=== PATIENT | male | born 1970 | race Caucasian/White ===

== ENCOUNTER 2016-05-31 08:55 | Emergency (ER) | payer BC ==
[2016-05-31] MEDS ORDERED: Sodium Chloride 0.9% 10 ML Syringe FLUSH PRN (09:09)
[2016-05-31] MEDS ORDERED: Aspirin 81 MG Tab.Chew PO ONE (09:09)
[2016-05-31] MEDS: Nitroglycerin 0.4 MG Tab.SL SL PRN ×3 (09:17→09:31)
--- NOTE | 2016-05-31 09:17 | EDM.PDOC ---
ED HISTORY OF PRESENT ILLNESS - General Chief Complaint: Chest Pain Stated Complaint: CHEST PAIN Time Seen by Provider: 05/31/16 09:02 Source of Information: Reports: Patient History Limitations: Reports: No limitations - History of Present Illness INITIAL COMMENTS - FREE TEXT/NARRATIVE: The patient presents with chest pressure. He describes it as an elephant sitting on his chest. This started about 4am. He feels short of breath with it. He has been having these episodes of chest pain on and off for a few months. This last one was for a couple days and today it was worse. He is scheduled to see a manpower development manager tomorrow. Dr Arce is his doctor and she told him if he has another episode to come to the ER. He did not take aspirin this morning. He feels feverish and he has chills. He has a slight cough. He has no nausea or vomiting but he did have a hard lump that hurt to his left upper abdomen. 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 They did not require stenting. He saw his doctor last week. She told him he has a "black spot" on his heart. The pain radiates to his back. He also has generalized weakness. Timing/Duration: Reports: Week(s): Severity: severe Location, General: Reports: chest Quality: Reports: Pressure Improves with: Reports: None Worsens with: Reports: None Associated Symptoms (General): Reports: chest pain, cough, fever/chills, shortness of breath. Denies: loss of appetite, nausea/vomiting - Related Data Allergies/ADRs: Allergies Allergy/AdvReac Type Severity Reaction Status Date / Time codeine Allergy Anxiety Verified 05/31/16 09:04 ketorolac [From Toradol] Allergy Headache Verified 05/31/16 09:04 Home Meds: Home Meds Carvedilol [Coreg] 12.5 mg PO DAILY 10/14/15 [History] Escitalopram [Lexapro] 20 mg PO DAILY 10/14/15 [History] Levothyroxine [Synthroid] 200 mcg PO DAILY 10/14/15 [History] Lisinopril 40 mg PO DAILY 10/14/15 [History] Past Medical History Cardiovascular History: Reports: Hypertension, [place] Musculoskeletal History: Reports: Fibromyalgia Neurological History: Reports: Other (see below) Other Neuro History: syncopal episode Psychiatric History: Reports: Depression Endocrine/Metabolic History: Reports: Hypothyroidism - Past Surgical History HEENT Surgical History: Reports: Tonsillectomy GI Surgical History: Reports: Cholecystectomy, Other (see below) Other GI Surgeries/Procedures: gastric bypass Endocrine Surgical History: Reports: Thyroidectomy Social & Family History - Family History Cardiac: Reports: [place] Endocrine/Metabolic: Reports: Diabetes, type II Oncologic: Reports: Ovarian - Tobacco Use Smoking Status *Q: Current Every Day Smoker Years of Tobacco use: 18 Packs/Tins Daily: 0.5 - Recreational Drug Use Recreational Drug Use: No ED ROS GENERAL - Review of Systems Review Of Systems: See Below Constitutional: Reports: fever, chills, malaise, weakness HEENT: Reports: No symptoms Respiratory: Reports: shortness of breath, cough Cardiovascular: Reports: Chest pain Endocrine: Reports: fatigue GI/Abdominal: Reports: No symptoms : Reports: no symptoms Musculoskeletal: Reports: no symptoms Skin: Reports: no symptoms ED EXAM, GENERAL - Physical Exam Exam: See Below Exam Limited By: No limitations General Appearance: alert, no apparent distress Ears: normal external exam Nose: normal inspection Head: atraumatic, normocephalic Neck: normal inspection Respiratory/Chest: no respiratory distress, lungs clear, normal breath sounds Cardiovascular: regular rate, rhythm, no edema, no murmur GI/Abdominal: soft, non tender, no organomegaly Back Exam: normal inspection Extremities: normal inspection EKG INTERPRETATION EKG Date: 05/31/16 Time: 08:59 Rhythm: NSR Rate (beats/min): 61 [place]: normal P-wave: present QRS: normal ST-T: normal QT: normal Course - Vital Signs Last Recorded V/S: Last Vital Signs Temp 97.6 F 05/31/16 08:59 Pulse 65 05/31/16 08:59 Resp 18 05/31/16 08:59 BP 153/110 H 05/31/16 09:31 Pulse Ox 100 05/31/16 09:00 - Orders/Labs/Meds Orders: Active Orders 24 hr Category Date Time Status Cardiac Monitoring [RC] . DIRECTED Care 05/31/16 09:09 Active EKG Documentation Completion [RC] STAT Care 05/31/16 09:10 Active Oxygen Therapy [RC] PRN Care 05/31/16 09:09 Active Peripheral IV Care [RC] . DIRECTED Care 05/31/16 09:10 Active Nitroglycerin [Nitrostat] Med 05/31/16 09:09 Active 0.4 mg SL Q5M PRN Sodium Chloride 0.9% [Normal Saline] 100 ml Med 05/31/16 10:30 Active IV ASDIRECTED Sodium Chloride 0.9% [Saline Flush] Med 05/31/16 09:09 Active 10 ml FLUSH ASDIRECTED PRN Peripheral IV Insertion Adult [OM.PC] Stat Oth 05/31/16 09:09 Ordered Medication Orders Sodium Chloride (Normal Saline) 100 mls @ 60 mls/hr IV ASDIRECTED FLAKITA Last Admin: 05/31/16 10:33 Dose: 60 mls/hr Nitroglycerin (Nitrostat) 0.4 mg SL Q5M PRN PRN Reason: Chest Pain Stop: 06/01/16 09:10 Last Admin: 05/31/16 09:31 Dose: 0.4 mg Admin: 05/31/16 09:26 Dose: 0.4 mg Admin: 05/31/16 09:17 Dose: 0.4 mg Sodium Chloride (Saline Flush) 10 ml FLUSH ASDIRECTED PRN PRN Reason: Keep Vein Open Last Admin: 05/31/16 09:18 Dose: 10 ml Labs: Laboratory Tests 05/31/16 05/31/16 05/31/16 Range/Units 09:02 09:02 09:02 WBC 5.02 (4.23-9.07) K/mm3 RBC 4.79 (4.63-6.08) M/mm3 Hgb 14.0 (13.7-17.5) gm/L Hct 43.7 (40.1-51.0) % MCV 91.2 (79.0-92.2) fl MCH 29.2 (25.7-32.2) pg MCHC 32.0 L (32.2-35.5) g/dl RDW Std Deviation 52.9 H (35.1-43.9) fL Plt Count 273 (163-337) K/mm3 MPV 9.5 (9.4-12.3) fl Neut % (Auto) 64.9 (34.0-67.9) % Lymph % (Auto) 23.7 (21.8-53.1) % [place] % (Auto) 8.0 (5.3-12.2) % Eos % (Auto) 1.8 (0.8-7.0) Baso % (Auto) 1.6 H (0.1-1.2) % Neut # 3.26 (1.78-5.38) K/mm3 Lymph # 1.19 L (1.32-3.57) K/mm3 [place] # 0.40 (0.30-0.82) K/mm3 Eos # 0.09 (0.04-0.54) K/mm3 Baso # 0.08 (0.01-0.08) K/mm3 D-Dimer, Quantitative 2.07 H (0.19-0.59) mg/L Sodium 140 (136-145) mEq/L Potassium 3.7 (3.5-5.1) mEq/L Chloride 101 (98-107) mEq/L Carbon Dioxide 30 (21-32) mEq/L Anion Gap 12.7 (5-15) BUN 13 (7-18) mg/dL Creatinine 1.3 (0.7-1.3) mg/dL Est Cr Clr Drug Dosing 74.09 mL/min Estimated GFR (MDRD) 60 (>60) mL/min BUN/Creatinine Ratio 10.0 L (14-18) Glucose 102 (74-106) mg/dL Calcium 8.5 (8.5-10.1) mg/dL Total Bilirubin 0.8 (0.2-1.0) mg/dL AST 21 (15-37) U/L ALT 23 (16-63) U/L Alkaline Phosphatase 80 (46-116) U/L Troponin I < 0.017 (0.00-0.056) ng/mL Total Protein 7.7 (6.4-8.2) g/dl Albumin 3.9 (3.4-5.0) g/dl Globulin 3.8 gm/dL Albumin/Globulin Ratio 1.0 (1-2) 05/31/16 Range/Units 11:55 WBC (4.23-9.07) K/mm3 RBC (4.63-6.08) M/mm3 Hgb (13.7-17.5) gm/L Hct (40.1-51.0) % MCV (79.0-92.2) fl MCH (25.7-32.2) pg MCHC (32.2-35.5) g/dl RDW Std Deviation (35.1-43.9) fL Plt Count (163-337) K/mm3 MPV (9.4-12.3) fl Neut % (Auto) (34.0-67.9) % Lymph % (Auto) (21.8-53.1) % [place] % (Auto) (5.3-12.2) % Eos % (Auto) (0.8-7.0) Baso % (Auto) (0.1-1.2) % Neut # (1.78-5.38) K/mm3 Lymph # (1.32-3.57) K/mm3 [place] # (0.30-0.82) K/mm3 Eos # (0.04-0.54) K/mm3 Baso # (0.01-0.08) K/mm3 D-Dimer, Quantitative (0.19-0.59) mg/L Sodium (136-145) mEq/L Potassium (3.5-5.1) mEq/L Chloride (98-107) mEq/L Carbon Dioxide (21-32) mEq/L Anion Gap (5-15) BUN (7-18) mg/dL Creatinine (0.7-1.3) mg/dL Est Cr Clr Drug Dosing mL/min Estimated GFR (MDRD) (>60) mL/min BUN/Creatinine Ratio (14-18) Glucose (74-106) mg/dL Calcium (8.5-10.1) mg/dL Total Bilirubin (0.2-1.0) mg/dL AST (15-37) U/L ALT (16-63) U/L Alkaline Phosphatase (46-116) U/L Troponin I < 0.017 (0.00-0.056) ng/mL Total Protein (6.4-8.2) g/dl Albumin (3.4-5.0) g/dl Globulin gm/dL Albumin/Globulin Ratio (1-2) Meds: Medications Generic Name Dose Route Start Last Admin Trade Name Freq PRN Reason Stop Dose Admin Sodium Chloride 100 mls @ 60 mls/hr 05/31/16 10:30 05/31/16 10:33 Normal Saline IV 60 mls/hr ASDIRECTED FLAKITA Administration Nitroglycerin 0.4 mg 05/31/16 09:09 05/31/16 09:31 Nitrostat SL 06/01/16 09:10 0.4 mg Q5M PRN Administration Chest Pain Sodium Chloride 10 ml 05/31/16 09:09 05/31/16 09:18 Saline Flush FLUSH 10 ml ASDIRECTED PRN Administration Keep Vein Open Discontinued Medications Generic Name Dose Route Start Last Admin Trade Name Wilfredo PRN Reason Stop Dose Admin Aspirin 324 mg 05/31/16 09:09 05/31/16 09:16 Aspirin PO 05/31/16 09:10 324 mg ONETIME ONE Administration Hydromorphone HCl 1 mg 05/31/16 10:12 05/31/16 10:51 Dilaudid IVPUSH 05/31/16 10:13 1 mg ONETIME ONE Administration Hydromorphone HCl 1 mg 05/31/16 10:50 05/31/16 12:00 Dilaudid IVPUSH 05/31/16 10:51 Not Given ONETIME ONE Iopamidol 200 ml 05/31/16 10:19 05/31/16 10:33 Isovue-370 (76%) IVPUSH 05/31/16 10:20 120 ml ONETIME ONE Administration Sodium Chloride 10 ml 05/31/16 10:19 05/31/16 10:33 Saline Flush FLUSH 05/31/16 10:20 10 ml ONETIME ONE Administration - Re-Assessments/Exams Free Text/Narrative Re-Assessment/Exam: 05/31/16 09:20 I ordered oxygen, IV saline lock, aspirin, nitro, EKG, CXR and labs. His EKG shows a NSR with no acute changes. 05/31/16 13:08 His CXR looks good. His CBC and CMP look good. His troponin is negative. His D-dimer is elevated so I ordered a CT of his chest and there was no findings of pulmonary embolism. Small subpleural nodule within the left lung base which is likely incidental as no other nodules are seen. Previous gastric surgery. Coronary artery calcification. I ordered some dilaudid for his chest pain. That made it better. I did a repeat troponin and that was negative. His blood pressure is better now in the 160s. He did not take his blood pressure medications today. Departure - Departure Time of Disposition: 13:15 Disposition: Home, Self-Care 01 Condition: good Clinical Impression: Chest pain Qualifiers: Chest pain type: unspecified Qualified Code(s): R07.9 - Chest pain, unspecified Hypertension Qualifiers: Hypertension type: essential hypertension Qualified Code(s): I10 - Essential ( primary) hypertension Referrals: Renae Arce DO [Primary Care Provider] - 1 Week Forms: ED Department Discharge Additional Instructions: Follow up with your manpower development manager tomorrow. Take your medication as prescribed. Pleas return if you are worse. - My Orders Last 24 Hours: My Active Orders 05/31/16 09:09 Cardiac Monitoring [RC] . DIRECTED Oxygen Therapy [RC] PRN Nitroglycerin [Nitrostat] 0.4 mg SL Q5M PRN Sodium Chloride 0.9% [Saline Flush] 10 ml FLUSH ASDIRECTED PRN Peripheral IV Insertion Adult [OM.PC] Stat 05/31/16 09:10 EKG Documentation Completion [RC] STAT Peripheral IV Care [RC] . DIRECTED 05/31/16 10:30 Sodium Chloride 0.9% [Normal Saline] 100 ml IV ASDIRECTED - Assessment/Plan Last 24 Hours: My Active Orders 05/31/16 09:09 Cardiac Monitoring [RC] . DIRECTED Oxygen Therapy [RC] PRN Nitroglycerin [Nitrostat] 0.4 mg SL Q5M PRN Sodium Chloride 0.9% [Saline Flush] 10 ml FLUSH ASDIRECTED PRN Peripheral IV Insertion Adult [OM.PC] Stat 05/31/16 09:10 EKG Documentation Completion [RC] STAT Peripheral IV Care [RC] . DIRECTED 05/31/16 10:30 Sodium Chloride 0.9% [Normal Saline] 100 ml IV ASDIRECTED
[2016-05-31] MEDS ORDERED: HYDROmorphone 1 MG/ML Syringe IVPUSH ONE ×2 (10:12→10:50)
--- NOTE | 2016-05-31 10:17 | CR ---
Chest: Portable view of the chest was obtained. Comparison: No previous chest x-ray, previous chest CT of 09/16/09 is available. Heart size and mediastinum are normal. Lungs are clear. Bony structures are grossly intact. Impression: 1. Nothing acute is seen on portable chest x-ray. Diagnostic code #1
[2016-05-31] MEDS ORDERED: Iopamidol 755 Mg/ML 100 ML Bottle IVPUSH ONE (10:19)
[2016-05-31] MEDS ORDERED: Sodium Chloride 0.9% 10 ML Syringe FLUSH ONE (10:19)
[2016-05-31] MEDS ORDERED: Sodium Chloride 0.9% 100 ML IV SCH (10:30)
--- NOTE | 2016-05-31 10:54 | CT ---
CT chest Technique: Multiple axial sections through the chest were obtained. Study performed as a pulmonary angiogram protocol and intravenous contrast was therefore utilized. Comparison: Previous chest x-ray performed earlier on the same day. Findings: Pulmonary arteries are well-opacified. No filling defects are seen to indicate pulmonary embolism. Previous gastric surgery is noted. No pericardial thickening is seen. Mild coronary artery calcification is noted. No mediastinal or hilar adenopathy or mass is seen. No axillary adenopathy is seen. Small subpleural nodule is noted within the left lung base measuring about 5 mm. No additional nodule is seen within the chest and this finding is likely incidental. Bone window settings were reviewed which appear within normal limits for the patient's age. Impression: 1. No findings of pulmonary embolism. 2. Small subpleural nodule within the left lung base which is likely incidental as no other nodules are seen. 3. Previous gastric surgery. Coronary artery calcification. Diagnostic code #2
[2016-05-31] MEDS ORDERED: HYDROmorphone 0.5 MG/0.5 ML Syringe IVPUSH ONE (13:15)
[2016-05-31 13:56] VITALS: BP 170/103
== END 2016-05-31 13:54 | disposition home or self-care (01) ==
LOC: JD.ED 08:55
DX: R07.9 Chest pain, unspecified (principal); I10 Essential (primary) hypertension; Z88.6 Allergy status to analgesic agent; Z79.899 Other long term (current) drug therapy; I25.2 Old myocardial infarction; M79.7 Fibromyalgia; E03.9 Hypothyroidism, unspecified; F32.9 Major depressive disorder, single episode, unspecified; F17.200 Nicotine dependence, unspecified, uncomplicated
CPT/HCPCS: 36415; 71010; 71275; 80053; 84484; 85025; 85379; 93005; 96374; 96376; 99285; A9270; J1170; J7030; J7050; Q9967; 99284

== ENCOUNTER 2016-06-13 09:34 | Emergency (ER) | payer BC ==
--- NOTE | 2016-06-13 10:04 | EDM.PDOC ---
ED HPI ENT - General Chief Complaint: ENT Problem Stated Complaint: SWOLLEN JAW Time Seen by Provider: 06/13/16 09:56 Source of Information: Reports: Patient History Limitations: Reports: No limitations - History of Present Illness INITIAL COMMENTS - FREE TEXT/NARRATIVE: The patient presents with right lower jaw dental pain and edema. This all started yesterday with pain to the 2nd molar in the right lower jaw and now he has moderate edema to the right jaw. He has no fever or chills. He called his dentist and they could not get him in for 3 months. Timing/Duration: Reports: Day(s): (Yesterda) Severity: severe Location: Reports: throat (Right lower jaw) Quality: Reports: Sharp Improves with: Reports: None Worsens with: Reports: None Associated Symptoms: Reports: no other symptoms - Related Data Allergies/ADRs: Allergies Allergy/AdvReac Type Severity Reaction Status Date / Time codeine Allergy Anxiety Verified 06/13/16 09:45 ketorolac [From Toradol] Allergy Headache Verified 06/13/16 09:45 Home Meds: Home Meds Carvedilol [Coreg] 12.5 mg PO DAILY 10/14/15 [History] Escitalopram [Lexapro] 20 mg PO DAILY 10/14/15 [History] Levothyroxine [Synthroid] 200 mcg PO DAILY 10/14/15 [History] Lisinopril 40 mg PO DAILY 10/14/15 [History] Penicillin V Potassium 500 mg PO Q6HR #40 tab 06/13/16 [Rx] oxyCODONE HCl/Acetaminophen [Percocet 5-325 mg Tablet] 1 - 2 each PO Q6HR PRN # 20 tablet 06/13/16 [Rx] Past Medical History Cardiovascular History: Reports: Hypertension, [place] Musculoskeletal History: Reports: Fibromyalgia Neurological History: Reports: Other (see below) Other Neuro History: syncopal episode Psychiatric History: Reports: Depression Endocrine/Metabolic History: Reports: Hypothyroidism - Past Surgical History HEENT Surgical History: Reports: Tonsillectomy GI Surgical History: Reports: Cholecystectomy, Other (see below) Other GI Surgeries/Procedures: gastric bypass Endocrine Surgical History: Reports: Thyroidectomy Social & Family History - Family History Cardiac: Reports: [place] Endocrine/Metabolic: Reports: Diabetes, type II Oncologic: Reports: Ovarian - Tobacco Use Smoking Status *Q: Current Every Day Smoker Years of Tobacco use: 15 Packs/Tins Daily: 0.5 - Caffeine Use Caffeine Use: Reports: Soda - Recreational Drug Use Recreational Drug Use: No ED ROS ENT - Review of Systems Review Of Systems: See Below Constitutional: Reports: no symptoms HEENT: Reports: Dental pain, Other (Right sided jaw edema) Respiratory: Reports: No Symptoms Cardiovascular: Reports: No symptoms Endocrine: Reports: no symptoms GI/Abdominal: Reports: No symptoms : Reports: no symptoms Musculoskeletal: Reports: no symptoms Skin: Reports: no symptoms Neurological: Reports: No Symptoms ED EXAM, ENT - Physical Exam Exam: See Below Exam Limited By: No limitations General Appearance: alert, no apparent distress Ears: normal external exam Nose: normal inspection Mouth/Throat: Other (Moderate edema to the right lower jaw. Pain upon palpation to the right 2nd molar with eryathema and edema) Course - Vital Signs Last Recorded V/S: Last Vital Signs Temp 98.0 F 06/13/16 09:45 Pulse 70 06/13/16 09:45 Resp 12 06/13/16 09:45 BP 130/88 06/13/16 09:45 Pulse Ox 100 06/13/16 09:45 Departure - Departure Time of Disposition: 10:05 Disposition: Home, Self-Care 01 Condition: good Clinical Impression: Dental abscess Prescriptions: Penicillin V Potassium 500 mg PO Q6HR #40 tab oxyCODONE HCl/Acetaminophen [Percocet 5-325 mg Tablet] 1 - 2 each PO Q6HR PRN # 20 tablet PRN Reason: Pain Referrals: Renae Arce DO [Primary Care Provider] - Forms: ED Department Discharge Additional Instructions: Take the medication as prescribed and put a warm compress on your face 2 to 3 times per day. Please return if you are worse. Follow up with a dentist as soon as you can.
== END 2016-06-13 10:15 | disposition home or self-care (01) ==
LOC: JD.ED 09:34
CPT/HCPCS: 99282; 99283